=== PATIENT | female | born 1940 | race Caucasian/White ===

== ENCOUNTER 2021-09-08 18:33 | Emergency (ER) | payer OTHER ==
[2021-09-08 18:41] VITALS: PULSE 78; TEMP 98.5; BMI 17.6
[2021-09-08] MEDS ORDERED: ACETAMINOPHEN 1000 MG/100 ML BAG IVPB ONE (19:35)
[2021-09-08] MEDS ORDERED: ACETAMINOPHEN INJECTION 100 ML IVPB ONE (19:37)
[2021-09-08 21:14] LABS: BASO % 0.5 % (0-2.0); EOS % 1.9 % (0-4.5); HEMATOCRIT 36.6 % (32.4-45.2); HEMOGLOBIN 12.5 GM/dL (10.7-15.3); LYMPH % 21.6 % (8-40); MCH 32.4 pg (25.7-33.7); MEAN CELL VOLUME 95.2 fl (80-96); MEAN PLT VOLUME 8.2 fl (7.5-11.1); MONO % 11.5 % (3.8-10.2); NEUT % 64.5 % (42.8-82.8); PLATELET COUNT 219 10^3/uL (134-434); RBC 3.84 M/mm3 (3.60-5.2); RDW 13.1 % (11.6-15.6)
[2021-09-08 21:16] LABS: ACTIVATED PTT 30.9 SECONDS (25.2-36.5); URINE APPEARANCE CLEAR; URINE BILIRUBIN NEGATIVE (NEGATIVE); URINE COLOR YELLOW; URINE GLUCOSE (UA) 1+ (NEGATIVE); URINE KETONE NEGATIVE (NEGATIVE); URINE LEUK ESTERASE NEGATIVE (NEGATIVE); URINE NITRITE NEGATIVE (NEGATIVE); URINE PROTEIN NEGATIVE (NEGATIVE); URINE UROBILINOGEN 0.2 mg/dL (0.2-1.0)
[2021-09-08 21:18] LABS: ALBUMIN 3.8 g/dl (3.4-5.0); MAGNESIUM 2.1 mg/dL (1.8-2.4)
[2021-09-08 21:19] LABS: BLOOD UREA NITROGEN 20.7 mg/dL (7-18)
[2021-09-08 21:21] LABS: CREATININE 0.6 mg/dL (0.55-1.3)
[2021-09-08 21:23] LABS: BILIRUBIN,TOTAL 0.4 mg/dL (0.2-1); TOT PROT 6.6 g/dl (6.4-8.2)
[2021-09-08 21:42] LABS: INR 1.09 (0.83-1.09); PROTHROMBIN TIME (PATIENT) 12.6 SEC (9.7-13.0)
[2021-09-08 22:50] VITALS: BP 197/84
== END 2021-09-08 22:51 | disposition home or self-care (01) ==
LOC: JER 18:33
DX: K64.8 Other hemorrhoids (principal)
CPT/HCPCS: 36415; 80053; 81003; 82272; 83735; 85025; 85610; 85730; 86850; 86900; 86901; 87086; 93005; 93010; 99284-25

== ENCOUNTER 2021-09-18 10:42 | Emergency (ER) | payer OTHER ==
[2021-09-18 11:24] VITALS: BMI 17.5
[2021-09-18 11:56] LABS: BASO % 0.7 % (0-2.0); EOS % 0.5 % (0-4.5); HEMATOCRIT 36.8 % (32.4-45.2); HEMOGLOBIN 12.5 GM/dL (10.7-15.3); LYMPH % 10.7 % (8-40); MCH 32.7 pg (25.7-33.7); MCHC 33.9 g/dl (32.0-36.0); MEAN CELL VOLUME 96.2 fl (80-96); MONO % 7.2 % (3.8-10.2); NEUT % 80.9 % (42.8-82.8); PLATELET COUNT 248 10^3/uL (134-434); RBC 3.82 M/mm3 (3.60-5.2); RDW 13.7 % (11.6-15.6); WHITE BLOOD COUNT 5.6 K/mm3 (4.0-10.0)
[2021-09-18 12:17] LABS: ACTIVATED PTT 31.7 SECONDS (25.2-36.5); INR 1.08 (0.83-1.09); PROTHROMBIN TIME (PATIENT) 12.4 SEC (9.7-13.0)
[2021-09-18 12:24] LABS: ALBUMIN 3.6 g/dl (3.4-5.0); BLOOD UREA NITROGEN 19.6 mg/dL (7-18); CALCIUM 9.1 mg/dL (8.5-10.1)
[2021-09-18 12:27] LABS: CREATININE 0.8 mg/dL (0.55-1.3)
[2021-09-18 12:29] LABS: BILIRUBIN,TOTAL 0.8 mg/dL (0.2-1); TOT PROT 6.6 g/dl (6.4-8.2)
[2021-09-18 12:38] LABS: EPI CELLS 6 /uL (0-25.1); HYALINE CASTS 1 /uL (0-3.1); PH,URINE 6.5 (5.0-8.0); URINE APPEARANCE CLEAR; URINE BACTERIA 84 /uL (0-1359); URINE BILIRUBIN NEGATIVE (NEGATIVE); URINE COLOR YELLOW; URINE GLUCOSE (UA) 1+ (NEGATIVE); URINE KETONE NEGATIVE (NEGATIVE); URINE LEUK ESTERASE NEGATIVE (NEGATIVE); URINE NITRITE NEGATIVE (NEGATIVE); URINE PROTEIN NEGATIVE (NEGATIVE); URINE RBC 8 /uL (0-23.9); URINE UROBILINOGEN 0.2 mg/dL (0.2-1.0); URINE WBC 9 /uL (0-25.8)
[2021-09-18 14:41] VITALS: BP 187/86; PULSE 83; TEMP 99
== END 2021-09-18 14:42 | disposition home or self-care (01) ==
LOC: JER 10:42
DX: K92.2 Gastrointestinal hemorrhage, unspecified (principal)
CPT/HCPCS: 36415; 71045-TC-FY; 74174-TC; 80053; 81003; 83605; 83735; 85025; 85610; 85730; 86850; 86900; 86901; 87040; 87086; 99285-25; Q9967

== ENCOUNTER 2021-10-28 11:01 | Day surgery (SDC) | payer OTHER ==
[2021-10-28] MEDS ORDERED: SODIUM CHLORIDE 250 ML IV ONE (13:30)
[2021-10-28 13:34] LABS: BASO % 1.2 % (0-2.0); EOS % 2.3 % (0-4.5); HEMATOCRIT 34.7 % (32.4-45.2); HEMOGLOBIN 11.8 GM/dL (10.7-15.3); LYMPH % 10.8 % (8-40); MCH 31.9 pg (25.7-33.7); MEAN CELL VOLUME 93.8 fl (80-96); MONO % 10.5 % (3.8-10.2); NEUT % 75.2 % (42.8-82.8); PLATELET COUNT 324 10^3/uL (134-434); RDW 13.1 % (11.6-15.6); WHITE BLOOD COUNT 5.6 K/mm3 (4.0-10.0)
[2021-10-28] MEDS ORDERED: DEXAMETHASONE SODIUM PHOSPHATE 10 MG in SODIUM CHLORIDE 50 ML IVPB ONE (14:00)
[2021-10-28] MEDS ORDERED: PALONOSETRON HCL 0.25 MG/5 ML VIAL IVPUSH ONE (14:00)
[2021-10-28 14:09] LABS: BLOOD UREA NITROGEN 19.9 mg/dL (7-18); CALCIUM 9.3 mg/dL (8.5-10.1)
[2021-10-28 14:10] LABS: ALBUMIN 3.4 g/dl (3.4-5.0)
[2021-10-28 14:14] LABS: CREATININE 0.6 mg/dL (0.55-1.3)
[2021-10-28 14:15] LABS: BILIRUBIN,DIRECT 0.1 mg/dL (0.0-0.2); BILIRUBIN,TOTAL 0.4 mg/dL (0.2-1)
[2021-10-28 14:16] LABS: TOT PROT 6.5 g/dl (6.4-8.2)
[2021-10-28 17:03] VITALS: BP 173/73; PULSE 73; TEMP 97.8
== END 2021-10-28 16:15 | disposition home or self-care (01) ==
LOC: JCHEMO 11:01 → JRADIR 11:01 → J7W 13:09 → JCHEMO 16:15
PROVIDERS: ATTEND Internal Medicine Hematology & Oncology
PROC: 02HV33Z Insertion of Infusion Device into Superior Vena Cava, Percutaneous Approach (ICD-10-PCS; principal; 2021-10-28)
PROC: B518ZZA Fluoroscopy of Superior Vena Cava, Guidance (ICD-10-PCS; 2021-10-28)
PROC: 3E04305 Introduction of Other Antineoplastic into Central Vein, Percutaneous Approach (ICD-10-PCS; 2021-10-28)
DX: Z51.11 Encounter for antineoplastic chemotherapy (principal); C21.0 Malignant neoplasm of anus, unspecified
CPT/HCPCS: 36415; 36569; 36573; 80048; 80076; 85025; 96365; 96375; 96409; J2469

== ENCOUNTER 2023-12-06 09:10 | Day surgery (SDC) | payer OTHER ==
[2023-12-02 12:27] VITALS: BMI 16.9
[2023-12-06 09:47] LABS: BASO % 0.7 % (0-2.0); EOS % 2.3 % (0-4.5); HEMOGLOBIN 11.2 GM/dL (10.7-15.3); LYMPH % 5.5 % (8-40); MCH 30.4 pg (25.7-33.7); MCHC 33.1 g/dl (32.0-36.0); MEAN CELL VOLUME 91.9 fl (80-96); MEAN PLT VOLUME 8.1 fl (7.5-11.1); MONO % 9.4 % (3.8-10.2); NEUT % 82.1 % (42.8-82.8); PLATELET COUNT 304 10^3/uL (134-434); RDW 14.4 % (11.6-15.6); WHITE BLOOD COUNT 7.8 K/mm3 (4.0-10.0)
[2023-12-06 09:52] LABS: INR 1.17 (0.83-1.09); PROTHROMBIN TIME (PATIENT) 13.2 SEC (9.7-13.0)
[2023-12-06 10:11] LABS: POTASSIUM 3.9 mmol/L (3.5-5.1)
[2023-12-06 10:16] LABS: CREATININE 0.9 mg/dL (0.55-1.3)
[2023-12-06] MEDS ORDERED: FENTANYL CITRATE/PF 50 MCG/ML VIAL ONE (10:41)
[2023-12-06 12:45] VITALS: RESP 16
[2023-12-06 14:13] VITALS: TEMP 97.8
[2023-12-06 15:10] VITALS: BP 154/60; PULSE 62
== END 2023-12-06 15:10 | disposition home or self-care (01) ==
LOC: JRADIR 09:10
PROVIDERS: ATTEND Internal Medicine Hematology & Oncology
PROC: 0FB03ZX Excision of Liver, Percutaneous Approach, Diagnostic (ICD-10-PCS; principal; 2023-12-06)
DX: C21.0 Malignant neoplasm of anus, unspecified (principal); C78.7 Secondary malignant neoplasm of liver and intrahepatic bile duct
CPT/HCPCS: 36415; 47000; 77012-TC; 80048; 85025; 85610; 88307-TC; 88341-TC; 88342-TC

== ENCOUNTER 2023-12-23 12:26 | Day surgery (SDC) | payer OTHER ==
[2023-12-23] MEDS: SODIUM CHLORIDE 250 ML IV ONE (12:57)
[2023-12-23 13:02] LABS: BASO % 1.1 % (0-2.0); EOS % 1.4 % (0-4.5); HEMATOCRIT 34.9 % (32.4-45.2); HEMOGLOBIN 11.6 GM/dL (10.7-15.3); LYMPH % 5.5 % (8-40); MCH 29.9 pg (25.7-33.7); MCHC 33.1 g/dl (32.0-36.0); MEAN CELL VOLUME 90.4 fl (80-96); MEAN PLT VOLUME 8.3 fl (7.5-11.1); MONO % 6.9 % (3.8-10.2); NEUT % 85.1 % (42.8-82.8); PLATELET COUNT 423 10^3/uL (134-434); RBC 3.87 M/mm3 (3.60-5.2); WHITE BLOOD COUNT 9.4 K/mm3 (4.0-10.0)
[2023-12-23 13:20] LABS: CHLORIDE 99 mmol/L (98-107); POTASSIUM 4.5 mmol/L (3.5-5.1); SODIUM 136 mmol/L (136-145)
[2023-12-23 13:24] LABS: ALBUMIN 3.1 g/dl (3.4-5.0); ANION GAP 8 mmol/L (4-13); BLOOD UREA NITROGEN 21.6 mg/dL (7-18); CALCIUM 8.6 mg/dL (8.5-10.1); CO2 29 mmol/L (21-32); GLUCOSE,RANDOM 221 mg/dL (74-106)
[2023-12-23 13:25] LABS: AMYLASE 94 U/L (25-115)
[2023-12-23 13:26] LABS: BILIRUBIN,DIRECT 0.2 mg/dL (0.0-0.2); SGPT/ALT 28 U/L (13-61)
[2023-12-23 13:27] LABS: SGOT/AST 42 U/L (15-37)
[2023-12-23 13:28] LABS: BILIRUBIN,TOTAL 0.5 mg/dL (0.2-1); TOT PROT 6.9 g/dl (6.4-8.2)
[2023-12-23 13:29] LABS: ALK PHOS 268 U/L (45-117)
[2023-12-23 13:30] LABS: N-TERMINAL BNP 1575.1 pg/ml (5-450)
[2023-12-23] MEDS: PEMBROLIZUMAB 200 MG in SODIUM CHLORIDE 100 ML IV ONE (14:40)
[2023-12-23 14:43] VITALS: RESP 20
[2023-12-23 14:49] LABS: EPI CELLS 14 /uL (0-25.1); HYALINE CASTS 1 /uL (0-3.1); PH,URINE 5.5 (5.0-8.0); URINE APPEARANCE CLEAR; URINE BACTERIA 33 /uL (0-1359); URINE BILIRUBIN NEGATIVE (NEGATIVE); URINE COLOR YELLOW; URINE GLUCOSE (UA) NEGATIVE (NEGATIVE); URINE KETONE TRACE (NEGATIVE); URINE LEUK ESTERASE NEGATIVE (NEGATIVE); URINE NITRITE NEGATIVE (NEGATIVE); URINE PROTEIN 2+ (NEGATIVE); URINE RBC 14 /uL (0-23.9); URINE WBC 48 /uL (0-25.8)
[2023-12-23 14:50] VITALS: BP 133/66; PULSE 72; TEMP 98.7
== END 2023-12-23 14:30 | disposition home or self-care (01) ==
LOC: J7W 12:26 → JONCCHEMO 12:26
PROVIDERS: ATTEND Internal Medicine Hematology & Oncology
PROC: 3E0337Z Introduction of Electrolytic and Water Balance Substance into Peripheral Vein, Percutaneous Approach (ICD-10-PCS; principal; 2023-12-23)
DX: Z51.11 Encounter for antineoplastic chemotherapy (principal); C21.0 Malignant neoplasm of anus, unspecified; Z53.8 Procedure and treatment not carried out for other reasons
CPT/HCPCS: 36415; 80048; 80076; 81003; 82150; 82533; 82550; 82553; 83690; 83880; 84439; 84443; 84484; 85025; 96360

== ENCOUNTER 2023-12-30 13:39 | Day surgery (SDC) | payer OTHER ==
[2023-12-30 14:07] LABS: BASO % 0.4 % (0-2.0); EOS % 0.7 % (0-4.5); HEMOGLOBIN 11.3 GM/dL (10.7-15.3); LYMPH % 4.1 % (8-40); MCH 29.8 pg (25.7-33.7); MCHC 33.2 g/dl (32.0-36.0); MEAN CELL VOLUME 89.8 fl (80-96); MEAN PLT VOLUME 8.2 fl (7.5-11.1); MONO % 8.7 % (3.8-10.2); NEUT % 86.1 % (42.8-82.8); PLATELET COUNT 383 10^3/uL (134-434); RBC 3.79 M/mm3 (3.60-5.2); WHITE BLOOD COUNT 10.1 K/mm3 (4.0-10.0)
[2023-12-30] MEDS: SODIUM CHLORIDE 250 ML IV ONE (14:15)
[2023-12-30 14:34] LABS: CHLORIDE 101 mmol/L (98-107); POTASSIUM 4.5 mmol/L (3.5-5.1); SODIUM 135 mmol/L (136-145)
[2023-12-30 14:37] LABS: ALBUMIN 3.1 g/dl (3.4-5.0); ANION GAP 6 mmol/L (4-13); CO2 28 mmol/L (21-32); GLUCOSE,RANDOM 136 mg/dL (74-106)
[2023-12-30 14:38] LABS: AMYLASE 91 U/L (25-115)
[2023-12-30 14:39] LABS: PLATELET ESTIMATE ADEQUATE
[2023-12-30 14:40] LABS: BILIRUBIN,DIRECT 0.2 mg/dL (0.0-0.2); BILIRUBIN,TOTAL 0.8 mg/dL (0.2-1); CREATININE 0.9 mg/dL (0.55-1.3); SGOT/AST 44 U/L (15-37); SGPT/ALT 24 U/L (13-61)
[2023-12-30 14:41] LABS: TOT PROT 6.7 g/dl (6.4-8.2)
[2023-12-30 14:42] LABS: ALK PHOS 248 U/L (45-117)
[2023-12-30 14:43] LABS: BLOOD UREA NITROGEN 22.8 mg/dL (7-18)
[2023-12-30] MEDS: PEMBROLIZUMAB 200 MG in SODIUM CHLORIDE 100 ML IV ONE (15:20)
[2023-12-30 17:39] VITALS: TEMP 98.1
[2023-12-30 17:43] VITALS: BP 128/58; PULSE 64; RESP 18
== END 2023-12-30 16:15 | disposition home or self-care (01) ==
LOC: JONCCHEMO 13:39 → J7W 13:39 → JONCCHEMO 16:15
PROVIDERS: ATTEND Internal Medicine Hematology & Oncology
DX: Z51.11 Encounter for antineoplastic chemotherapy (principal); C21.0 Malignant neoplasm of anus, unspecified
CPT/HCPCS: 36415; 80048; 80076; 82150; 82550; 83690; 84439; 84443; 85025; 96413; J9271

== ENCOUNTER 2024-01-11 19:12 | Inpatient (IN) | payer OTHER ==
[2024-01-11] MEDS ORDERED: MORPHINE SULFATE 2 MG/ML SYRINGE ONE (20:16)
[2024-01-11] MEDS: morphine CARPU-JECT 2 MG/1 ML DISP.SYRIN IVPUSH ONE (20:21)
[2024-01-11 20:29] LABS: BASO % 0.5 % (0-2.0); EOS % 2.2 % (0-4.5); HEMATOCRIT 32.9 % (32.4-45.2); HEMOGLOBIN 10.9 GM/dL (10.7-15.3); LYMPH % 4.8 % (8-40); MCH 29.7 pg (25.7-33.7); MCHC 33.2 g/dl (32.0-36.0); MEAN CELL VOLUME 89.4 fl (80-96); MEAN PLT VOLUME 8.1 fl (7.5-11.1); NEUT % 80.5 % (42.8-82.8); PLATELET COUNT 367 10^3/uL (134-434); RBC 3.68 M/mm3 (3.60-5.2); RDW 15.1 % (11.6-15.6); WHITE BLOOD COUNT 8.5 K/mm3 (4.0-10.0)
[2024-01-11 20:39] LABS: POTASSIUM 4.5 mmol/L (3.5-5.1)
[2024-01-11 20:41] LABS: INR 1.18 (0.83-1.09); PROTHROMBIN TIME (PATIENT) 13.5 SEC (9.7-13.0)
[2024-01-11 20:41] LABS: CALCIUM 8.5 mg/dL (8.5-10.1)
[2024-01-11 20:42] LABS: ALBUMIN 2.8 g/dl (3.4-5.0)
[2024-01-11 20:44] LABS: ACTIVATED PTT 32.7 SECONDS (25.2-36.5)
[2024-01-11 20:45] LABS: CREATININE 0.7 mg/dL (0.55-1.3)
[2024-01-11 20:46] LABS: BILIRUBIN,TOTAL 0.3 mg/dL (0.2-1)
[2024-01-11 20:47] LABS: TOT PROT 6.1 g/dl (6.4-8.2)
[2024-01-11 20:50] LABS: N-TERMINAL BNP 1910.1 pg/ml (5-450)
[2024-01-12] MEDS ORDERED: FUROSEMIDE 40 MG/4 ML INJECTABLE VIAL ONE (00:49)
[2024-01-12] MEDS: FUROSEMIDE 40 MG/4 ML INJECTABLE VIAL IVPUSH ONE ×2 (00:52→05:43)
[2024-01-12] MEDS: LABETALOL HCL 5 MG/1 ML (100MG/20 ML VIAL) IVPUSH ONE (02:24)
[2024-01-12 03:23] VITALS: BMI 16.2
[2024-01-12 07:47] LABS: BASO % 1.1 % (0-2.0); EOS % 1.6 % (0-4.5); HEMATOCRIT 33.5 % (32.4-45.2); HEMOGLOBIN 11.2 GM/dL (10.7-15.3); LYMPH % 3.6 % (8-40); MCH 29.9 pg (25.7-33.7); MCHC 33.6 g/dl (32.0-36.0); MEAN CELL VOLUME 89.2 fl (80-96); MONO % 6.9 % (3.8-10.2); NEUT % 86.8 % (42.8-82.8); PLATELET COUNT 399 10^3/uL (134-434); RBC 3.76 M/mm3 (3.60-5.2); RDW 14.6 % (11.6-15.6); WHITE BLOOD COUNT 8.1 K/mm3 (4.0-10.0)
[2024-01-12 08:02] LABS: CALCIUM 8.8 mg/dL (8.5-10.1)
[2024-01-12 08:03] LABS: ALBUMIN 2.9 g/dl (3.4-5.0); BLOOD UREA NITROGEN 12.3 mg/dL (7-18); MAGNESIUM 1.8 mg/dL (1.8-2.4)
[2024-01-12 08:06] LABS: CREATININE 0.7 mg/dL (0.55-1.3); PHOSPHOROUS 3.3 mg/dL (2.5-4.9)
[2024-01-12 08:07] LABS: BILIRUBIN,TOTAL 0.4 mg/dL (0.2-1)
[2024-01-12 08:08] LABS: TOT PROT 6.4 g/dl (6.4-8.2)
[2024-01-12] MEDS: LOSARTAN POTASSIUM 50 MG TABLET PO SCH (12:56)
[2024-01-12] MEDS: FUROSEMIDE 40 MG/4 ML INJECTABLE VIAL IVPUSH SCH (12:56)
[2024-01-12 17:20] LABS: BF WBC & OTHER NUCLEATED CELLS 2946 /mm3
[2024-01-12] MEDS: oxyCODONE HCL 5 MG TABLET PO PRN (20:01)
[2024-01-13] MEDS: AMINO ACIDS/PROTEIN HYDROLYS 30 ML LIQUID.PKT PO SCH (09:10)
[2024-01-13] MEDS: DOCUSATE SODIUM 100 MG CAPSULE (FP) PO SCH (09:10)
[2024-01-13] MEDS: MULTIVITAMINS (DAILY MVI) TABLET (FP) PO SCH (09:10)
[2024-01-13 09:31] LABS: BODY FLUID MACROPHAGES 25 %; BODY FLUID MESOTHELIAL 12 %; BODY FLUID MONOCYTE 4 %
[2024-01-14 16:11] LABS: BODY FLUID ALBUMIN 2.5 g/dL (Not Estab.)
[2024-01-15] MEDS: MELATONIN 5 MG TABLETS PO ONE (22:21)
[2024-01-16 01:27] VITALS: RESP 18
[2024-01-16 14:49] VITALS: BP 142/64; PULSE 78; TEMP 98.6
== END 2024-01-16 15:35 | disposition home or self-care (01) | DRG 436 ==
LOC: JER 19:12 → JERBED 01-12 00:06 → J7W 01-12 03:04 → OBSVTOIN 01-13 11:09
PROVIDERS: ADMIT Internal Medicine; ATTEND Internal Medicine
PROC: 0W9G3ZX Drainage of Peritoneal Cavity, Percutaneous Approach, Diagnostic (ICD-10-PCS; principal; 2024-01-12)
DX: C78.7 Secondary malignant neoplasm of liver and intrahepatic bile duct (principal); C21.0 Malignant neoplasm of anus, unspecified; R18.8 Other ascites; R64 Cachexia; Z68.1 Body mass index [BMI] 19.9 or less, adult; N17.9 Acute kidney failure, unspecified; I10 Essential (primary) hypertension; M79.89 Other specified soft tissue disorders; R33.8 Other retention of urine
CPT/HCPCS: 36415; 71045-TC-FY; 74177-TC; 76705-TC; 76942-TC; 80053; 82042; 82150; 82465; 82945; 83615; 83735; 83880; 83986; 84100; 84157; 84478; 84484; 85025; 85610; 85730; 87070; 87075; 87205; 88108; 88305-TC; 93005; 93010; 93306-TC; 93971-TC; 94761; 99285-25; G0378; Q9967

== ENCOUNTER 2024-02-28 12:54 | Day surgery (SDC) | payer OTHER ==
[~2024-02-28 12:54] MED LIST: PEMBROLIZUMAB 200 MG in SODIUM CHLORIDE 100 ML IV ONE; SODIUM CHLORIDE 250 ML IV ONE
[2024-02-28 13:36] LABS: BASO % 0.5 % (0-2.0); EOS % 0.4 % (0-4.5); HEMATOCRIT 34.2 % (32.4-45.2); MCH 28.2 pg (25.7-33.7); MCHC 32.2 g/dl (32.0-36.0); MEAN CELL VOLUME 87.8 fl (80-96); MEAN PLT VOLUME 7.8 fl (7.5-11.1); MONO % 7.1 % (3.8-10.2); PLATELET COUNT 384 10^3/uL (134-434); RBC 3.89 M/mm3 (3.60-5.2); RDW 15.8 % (11.6-15.6); WHITE BLOOD COUNT 10.9 K/mm3 (4.0-10.0)
[2024-02-28] MEDS: SODIUM CHLORIDE 250 ML IV ONE (14:00)
[2024-02-28 14:04] LABS: CHLORIDE 103 mmol/L (98-107); SODIUM 139 mmol/L (136-145)
[2024-02-28 14:08] LABS: CALCIUM 8.6 mg/dL (8.5-10.1); GLUCOSE,RANDOM 137 mg/dL (74-106)
[2024-02-28 14:09] LABS: ALBUMIN 2.6 g/dl (3.4-5.0); AMYLASE 82 U/L (25-115); ANION GAP 6 mmol/L (4-13); CO2 31 mmol/L (21-32)
[2024-02-28 14:11] LABS: CREATININE 0.7 mg/dL (0.55-1.3); SGOT/AST 38 U/L (15-37)
[2024-02-28 14:12] LABS: BILIRUBIN,DIRECT 0.2 mg/dL (0.0-0.2); SGPT/ALT 17 U/L (13-61)
[2024-02-28 14:13] LABS: BILIRUBIN,TOTAL 0.4 mg/dL (0.2-1); TOT PROT 6.6 g/dl (6.4-8.2)
[2024-02-28 14:14] LABS: ALK PHOS 234 U/L (45-117)
[2024-02-28] MEDS: PEMBROLIZUMAB 200 MG in SODIUM CHLORIDE 100 ML IV ONE (15:11)
[2024-02-28 18:08] VITALS: TEMP 98.6
[2024-02-28 18:12] VITALS: BP 160/79; PULSE 95; RESP 18
== END 2024-02-28 16:30 | disposition home or self-care (01) ==
LOC: JONCCHEMO 12:54 → J7W 12:55 → JONCCHEMO 16:30
PROVIDERS: ATTEND Internal Medicine Hematology & Oncology
DX: Z51.11 Encounter for antineoplastic chemotherapy (principal); C21.0 Malignant neoplasm of anus, unspecified
CPT/HCPCS: 36415; 80048; 80076; 82150; 82550; 83690; 84439; 84443; 85025; 96413; J9271

== ENCOUNTER 2024-03-20 13:52 | Day surgery (SDC) | payer OTHER ==
[2024-03-20] MEDS: SODIUM CHLORIDE 250 ML IV ONE (13:57)
[2024-03-20 14:27] LABS: BASO % 0.4 % (0-2.0); EOS % 0.6 % (0-4.5); HEMATOCRIT 33.6 % (32.4-45.2); HEMOGLOBIN 10.5 GM/dL (10.7-15.3); LYMPH % 5.6 % (8-40); MCH 27.5 pg (25.7-33.7); MCHC 31.1 g/dl (32.0-36.0); MEAN CELL VOLUME 88.2 fl (80-96); MEAN PLT VOLUME 7.8 fl (7.5-11.1); MONO % 7.6 % (3.8-10.2); NEUT % 85.8 % (42.8-82.8); PLATELET COUNT 352 10^3/uL (134-434); RBC 3.81 M/mm3 (3.60-5.2); RDW 16.3 % (11.6-15.6); WHITE BLOOD COUNT 8.1 K/mm3 (4.0-10.0)
[2024-03-20 14:42] LABS: ALBUMIN 2.6 g/dl (3.4-5.0); ANION GAP 7 mmol/L (4-13); CALCIUM 8.6 mg/dL (8.5-10.1); CHLORIDE 104 mmol/L (98-107); CO2 30 mmol/L (21-32); POTASSIUM 4.2 mmol/L (3.5-5.1); SODIUM 141 mmol/L (136-145)
[2024-03-20 14:43] LABS: BLOOD UREA NITROGEN 30.4 mg/dL (7-18); GLUCOSE,RANDOM 180 mg/dL (74-106)
[2024-03-20 14:45] LABS: SGPT/ALT 14 U/L (13-61)
[2024-03-20 14:46] LABS: BILIRUBIN,DIRECT 0.2 mg/dL (0.0-0.2); CREATININE 0.8 mg/dL (0.55-1.3); SGOT/AST 31 U/L (15-37)
[2024-03-20 14:47] LABS: BILIRUBIN,TOTAL 0.5 mg/dL (0.2-1); TOT PROT 6.3 g/dl (6.4-8.2)
[2024-03-20 14:48] LABS: ALK PHOS 268 U/L (45-117)
[2024-03-20] MEDS: PEMBROLIZUMAB 200 MG in SODIUM CHLORIDE 100 ML IV ONE (15:24)
[2024-03-20 17:31] VITALS: RESP 16
[2024-03-20 17:33] VITALS: TEMP 97
[2024-03-20 17:47] VITALS: BP 157/83; PULSE 94
== END 2024-03-20 16:15 | disposition home or self-care (01) ==
LOC: JONCCHEMO 13:52 → J7W 13:53 → JONCCHEMO 16:15
PROVIDERS: ATTEND Internal Medicine Hematology & Oncology
DX: Z51.11 Encounter for antineoplastic chemotherapy (principal); C21.0 Malignant neoplasm of anus, unspecified
CPT/HCPCS: 36415; 80048; 80076; 82150; 82550; 83690; 84439; 84443; 85025; 96413; J9271

== ENCOUNTER 2024-04-10 11:51 | Day surgery (SDC) | payer OTHER ==
[2024-04-10 11:57] LABS: BASO % 0.3 % (0-2.0); EOS % 0.4 % (0-4.5); HEMATOCRIT 34.3 % (32.4-45.2); HEMOGLOBIN 10.7 GM/dL (10.7-15.3); LYMPH % 5.4 % (8-40); MCH 27.3 pg (25.7-33.7); MCHC 31.3 g/dl (32.0-36.0); MEAN CELL VOLUME 87.4 fl (80-96); MEAN PLT VOLUME 7.4 fl (7.5-11.1); MONO % 5.5 % (3.8-10.2); NEUT % 88.4 % (42.8-82.8); PLATELET COUNT 310 10^3/uL (134-434); RBC 3.93 M/mm3 (3.60-5.2); RDW 17.6 % (11.6-15.6); WHITE BLOOD COUNT 6.6 K/mm3 (4.0-10.0)
[2024-04-10] MEDS: SODIUM CHLORIDE 250 ML IV ONE (12:07)
[2024-04-10 12:21] LABS: CHLORIDE 108 mmol/L (98-107); POTASSIUM 4.9 mmol/L (3.5-5.1); SODIUM 142 mmol/L (136-145)
[2024-04-10 12:23] LABS: CALCIUM 8.8 mg/dL (8.5-10.1)
[2024-04-10 12:24] LABS: ALBUMIN 2.4 g/dl (3.4-5.0); ANION GAP 4 mmol/L (4-13); BLOOD UREA NITROGEN 27.8 mg/dL (7-18); CO2 30 mmol/L (21-32); GLUCOSE,RANDOM 103 mg/dL (74-106)
[2024-04-10 12:25] LABS: AMYLASE 49 U/L (25-115)
[2024-04-10 12:26] LABS: BILIRUBIN,DIRECT 0.2 mg/dL (0.0-0.2); CREATININE 0.6 mg/dL (0.55-1.3)
[2024-04-10 12:27] LABS: SGOT/AST 36 U/L (15-37); SGPT/ALT 15 U/L (13-61)
[2024-04-10 12:28] LABS: BILIRUBIN,TOTAL 0.5 mg/dL (0.2-1); TOT PROT 5.9 g/dl (6.4-8.2)
[2024-04-10 12:29] LABS: ALK PHOS 267 U/L (45-117)
[2024-04-10 12:50] VITALS: RESP 20; TEMP 97.9
[2024-04-10] MEDS: PEMBROLIZUMAB 200 MG in SODIUM CHLORIDE 100 ML IV ONE (13:36)
[2024-04-10 14:55] VITALS: BP 125/68; PULSE 94
== END 2024-04-10 14:50 | disposition home or self-care (01) ==
LOC: JONCCHEMO 11:51 → J7W 11:51 → JONCCHEMO 14:50
PROVIDERS: ATTEND Internal Medicine Hematology & Oncology
DX: Z51.11 Encounter for antineoplastic chemotherapy (principal); C21.0 Malignant neoplasm of anus, unspecified; C78.7 Secondary malignant neoplasm of liver and intrahepatic bile duct
CPT/HCPCS: 36415; 80048; 80076; 82150; 82378; 82550; 82728; 83540; 83550; 83690; 84439; 84443; 85025; 96413; J9271

== ENCOUNTER 2024-05-01 13:56 | Day surgery (SDC) | payer OTHER ==
[2024-05-01 13:45] LABS: BASO % 0.1 % (0-2.0); EOS % 0.1 % (0-4.5); HEMATOCRIT 37.3 % (32.4-45.2); LYMPH % 3.5 % (8-40); MCH 26.7 pg (25.7-33.7); MCHC 29.5 g/dl (32.0-36.0); MEAN CELL VOLUME 90.5 fl (80-96); MEAN PLT VOLUME 7.8 fl (7.5-11.1); MONO % 5.5 % (3.8-10.2); NEUT % 90.8 % (42.8-82.8); PLATELET COUNT 351 10^3/uL (134-434); RBC 4.12 M/mm3 (3.60-5.2); RDW 17.8 % (11.6-15.6); WHITE BLOOD COUNT 12.2 K/mm3 (4.0-10.0)
[2024-05-01 14:40] LABS: CHLORIDE 110 mmol/L (98-107); POTASSIUM 4.8 mmol/L (3.5-5.1); SODIUM 146 mmol/L (136-145)
[2024-05-01 14:43] LABS: ALBUMIN 2.2 g/dl (3.4-5.0); ANION GAP 7 mmol/L (4-13); BLOOD UREA NITROGEN 33.6 mg/dL (7-18); CALCIUM 9.3 mg/dL (8.5-10.1); CO2 29 mmol/L (21-32)
[2024-05-01 14:44] LABS: AMYLASE 50 U/L (25-115); GLUCOSE,RANDOM 97 mg/dL (74-106)
[2024-05-01 14:46] LABS: BILIRUBIN,DIRECT 0.3 mg/dL (0.0-0.2); CREATININE 0.7 mg/dL (0.55-1.3); SGOT/AST 51 U/L (15-37); SGPT/ALT 19 U/L (13-61)
[2024-05-01 14:48] LABS: BILIRUBIN,TOTAL 0.6 mg/dL (0.2-1); TOT PROT 5.9 g/dl (6.4-8.2)
[2024-05-01 14:49] LABS: ALK PHOS 341 U/L (45-117)
[2024-05-01] MEDS: SODIUM CHLORIDE 250 ML IV ONE (15:16)
[2024-05-01] MEDS: PEMBROLIZUMAB 200 MG in SODIUM CHLORIDE 100 ML IV ONE (15:31)
[2024-05-01 17:14] VITALS: BP 140/65; PULSE 107; RESP 16; TEMP 97.4
== END 2024-05-01 16:15 | disposition home or self-care (01) ==
LOC: JONCCHEMO 13:56 → J7W 13:57 → JONCCHEMO 16:15
PROVIDERS: ATTEND Internal Medicine Hematology & Oncology
DX: Z51.11 Encounter for antineoplastic chemotherapy (principal); C21.0 Malignant neoplasm of anus, unspecified; C78.7 Secondary malignant neoplasm of liver and intrahepatic bile duct
CPT/HCPCS: 36415; 80048; 80076; 82150; 82550; 83690; 84439; 84443; 85025; 96413; J9271